=== PATIENT | male | born 1980 | race Caucasian/White ===

== ENCOUNTER 2016-12-17 17:42 | Emergency (ER) | payer OTHER ==
[~2016-12-17] VITALS: Ht 172.7 cm; Wt 93.6 kg
[2016-12-17 19:34] LABS: APPEARANCE,URINE CLOUDY (CLEAR); GLUCOSE, URINE (UA) NEGATIVE (NEGATIVE); KETONES,URINE NEGATIVE (NEGATIVE); LEUKOCYTE ESTERASE ,URINE MODERATE (NEGATIVE); OCCULT BLOOD,URINE TRACE (NEGATIVE); PROTEIN,URINE SEE CONFIRM (NEGATIVE)
[2016-12-17 19:38] LABS: ADD UA MICROSCOPIC YES
[2016-12-17 19:39] LABS: SULFOSALICYLIC ACID,URINE 2+ (Negative); WBC,URINE 26-50 /HPF (0-5)
[2016-12-17 20:03] VITALS: BP 131/78
== END 2016-12-17 20:05 | disposition home or self-care (01) ==
LOC: EMS 17:43
DX: N39.0 Urinary tract infection, site not specified (principal)
CPT/HCPCS: 87086; 99284